=== PATIENT | male | born 2000 | race Caucasian/White ===

== ENCOUNTER 2022-04-07 06:44 | Day surgery (SDC) | payer OTHER | END 2022-04-07 15:00 | disposition home or self-care (01) | LOC: CIR.AMB 06:44 | PROVIDERS: ATTEND Colon & Rectal Surgery | DX: L05.01 Pilonidal cyst with abscess (principal); Z86.16 Personal history of COVID-19; M19.90 Unspecified osteoarthritis, unspecified site ==